=== PATIENT | male | born 1980 | race Caucasian/White ===

== ENCOUNTER 2023-06-05 17:35 | Emergency (ER) | payer OTHER ==
[~2023-06-05] VITALS: Ht 182.9 cm; Wt 118.0 kg
[2023-06-05 17:37] VITALS: TEMP 98; O2SAT 99
[2023-06-05] MEDS ORDERED: SODIUM CHLORIDE 0.9% 1,000 ML IV ONE (18:15)
[2023-06-05 18:32] LABS: CLARITY URINE CLEAR (CLEAR); COLOR URINE YELLOW (YELLOW); GLUCOSE URINE 3+ (NEGATIVE); KETONES URINE 1+ (NEGATIVE); LEUKOCYTE ESTERASE URINE NEGATIVE (NEGATIVE); NITRITE URINE NEGATIVE (NEGATIVE); OCCULT BLOOD URINE NEGATIVE (NEGATIVE); PH URINE 5.5 (4.5-8.0); PROTEIN URINE 1+ (NEGATIVE); SPECIFIC GRAVITY URINE 1.031 (1.005-1.030); UROBILINOGEN URINE 0.2 E.U./dL (0.2-1.0)
[2023-06-05 18:38] LABS: BASOPHILS % 0.3 % (0.0-2.0); EOSINOPHILS % 0.3 % (0.0-5.0); HEMATOCRIT. 49.1 % (42.0-52.0); HEMOGLOBIN. 16.4 g/dL (14.0-18.0); LYMPHOCYTES % 10.6 % (20.0-50.0); MEAN CORPUSCULAR HEMOGLOBIN 28.3 pg (28.0-32.0); MEAN CORPUSCULAR HGB CONC 33.5 g/dL (31.0-37.0); MEAN CORPUSCULAR VOLUME 84.5 fL (80.0-94.0); MEAN PLATELET VOLUME 10.3 fl (7.4-10.4); MONOCYTES % 8.6 % (2.0-8.0); NEUTROPHILS % 80.2 % (40.0-76.0); PLATELET 206 x1000/uL (130-400); RED CELL DISTRIBUTION WIDTH 12.8 % (11.6-14.6); WHITE BLOOD COUNT 13.3 x1000/uL (4.5-11.0)
[2023-06-05 18:49] LABS: BETA HYDROXYBUTYRATE 1.6 mMol/L (0.0-0.3); CALCIUM 9.8 mg/dL (8.7-10.4); CARBON DIOXIDE 26 mEq/L (21-32); CHLORIDE 94 mEq/L (98-107); CREATININE 1.3 mg/dL (0.6-1.3); POTASSIUM 4.1 mEq/L (3.5-5.1); SODIUM 132 mEq/L (136-145); UREA NITROGEN BLOOD 11 mg/dL (9-23)
[2023-06-05 18:51] LABS: GLUCOSE 448 mg/dL (70-105)
[2023-06-05] MEDS ORDERED: INSULIN LISPRO 100 UNITS/ML SUBCUT STA (18:57)
[2023-06-05] MEDS ORDERED: KETOROLAC 30MG/ML VIAL IV STA (19:00)
[2023-06-05 19:02] LABS: BACTERIA URINE NONE SEEN; SQUAMOUS EPITHELIAL CELL URINE NONE SEEN /lpf (RARE/1+); WBC URINE 0-2 /hpf (0-2)
[2023-06-05 19:30] VITALS: BP 170/119; PULSE 124; RESP 20
[2023-06-05 20:04] LABS: TROPONIN I HIGH SENSITIVITY 12 ng/L (3.0-53)
== END 2023-06-05 21:21 ==
LOC: ER 17:35
DX: E11.65 Type 2 diabetes mellitus with hyperglycemia (principal)
CPT/HCPCS: 80048; 81003; 82010; 85025; 84484; 36415; 71045; 93005; 96361; 96372; 96374; 99284; J1815; J1885; J7030; Z7610